=== PATIENT | female | born 2000 | race Caucasian/White ===

== ENCOUNTER 2023-08-16 11:26 | Emergency (ER) | payer SELFPAY ==
[~2023-08-16] VITALS: Ht 160 cm; Wt 90.9 kg
[2023-08-16 11:29] VITALS: BP 110/57; PULSE 70; RESP 16; TEMP 97.7
== END 2023-08-16 12:11 | disposition home or self-care (01) ==
LOC: EMS 11:30
DX: R59.1 Generalized enlarged lymph nodes (principal)
CPT/HCPCS: 99282; Z7502

== ENCOUNTER 2025-03-12 07:51 | Emergency (ER) | payer OTHER ==
[~2025-03-12] VITALS: Ht 160 cm; Wt 97.7 kg
[2025-03-12 07:53] VITALS: BP 126/75; PULSE 68; RESP 18; TEMP 98; O2SAT 99
[2025-03-12] MEDS ORDERED: PNV1TABL77 PO (07:54)
[2025-03-12] MEDS ORDERED: AMOX500C2 PO (08:18)
[2025-03-12] MEDS: NEOMYCIN/POLYMYXIN B/HYDROCORT 10 ML OTIC SUSPENSION AD ONE (08:24)
[2025-03-12] MEDS: AMOXICILLIN TRIHYDRATE 250 MG CAPSULE PO ONE (08:24)
== END 2025-03-12 08:43 | disposition home or self-care (01) ==
LOC: EMS 07:59
DX: O99.891 Other specified diseases and conditions complicating pregnancy (principal); H66.93 Otitis media, unspecified, bilateral; O21.2 Late vomiting of pregnancy; Z79.899 Other long term (current) drug therapy; Z3A.37 37 weeks gestation of pregnancy
CPT/HCPCS: 99283